=== PATIENT | male | born 1985 | race Caucasian/White ===

== ENCOUNTER 2025-06-08 11:51 | Emergency (ER) | payer SELFPAY ==
[2025-06-08 11:51] VITALS: BP 156/92; PULSE 81; RESP 14; TEMP 36.6; O2SAT 98; BMI 25.8
[2025-06-08 12:00] VITALS: TEMP 36.8; BMI 26.2
[2025-06-08 12:05] VITALS: BP 116/77; PULSE 73; RESP 14; O2SAT 99
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
[2025-06-08 13:26] VITALS: BP 155/74; PULSE 84; RESP 14; TEMP 36.6; O2SAT 100
== END 2025-06-08 13:27 | disposition home or self-care (01) ==
LOC: ED 13:23
PROVIDERS: Emergency Provider Surgery; Visit Provider Surgery
DX: M54.2 Cervicalgia (principal); R51.9 Headache, unspecified; V89.2XXA Person injured in unspecified motor-vehicle accident, traffic, initial encounter; F17.290 Nicotine dependence, other tobacco product, uncomplicated
CPT/HCPCS: 70450; 72125; 99282